=== PATIENT | male | born 1950 | race Caucasian/White ===

== ENCOUNTER → 2019-11-15 09:26 | Outpatient (CLI) | payer OTHER, SELFPAY ==
--- NOTE | 2019-11-15 09:29 | DI.RAD.S_ITS ---
PROCEDURE: XR LUMBAR SPINE MIN 4V INDICATIONS: LBP TECHNIQUE: 5 views of the lumbar spine were acquired. COMPARISON: [facility], MR, MR LUMBAR SPINE WITHOUT CONTRAST, 07/21/2019, 16:11. FINDINGS: Bones: 5 nonrib-bearing vertebrae are present. Minimal scoliosis. No vertebral body compression fractures. No suspicious bony lesions. Moderate degenerative change and DDD most pronounced at L5-S1 where there is endplate sclerosis, loss of intervertebral disc space height loss, and osteophytosis. There is multilevel neural foraminal narrowing. Soft tissues: Increased on the colon. No suspicious soft tissue calcifications. Oblique images: No pars defects. IMPRESSION: No compression fracture. Moderate degenerative change and DDD most pronounced at L5-S1 and multilevel neural foraminal narrowing. Dictated by: Roel Heredia M.D. on 11/15/2019 at 10:02 Approved by: Roel Heredia M.D. on 11/15/2019 at 10:05
== END ==
PROVIDERS: PCP Family Medicine; Referring Provider Physical Medicine & Rehabilitation; Visit Provider Physical Medicine & Rehabilitation
DX: M54.5 Low back pain (principal); M51.17 Intervertebral disc disorders with radiculopathy, lumbosacral region; M48.07 Spinal stenosis, lumbosacral region; I82.409 Acute embolism and thrombosis of unspecified deep veins of unspecified lower extremity; D68.51 Activated protein C resistance; M17.12 Unilateral primary osteoarthritis, left knee; Z79.01 Long term (current) use of anticoagulants
CPT/HCPCS: 72110; 99214

== ENCOUNTER → 2020-01-06 09:23 | Outpatient (CLI) | payer OTHER, SELFPAY ==
[2020-01-07 19:12] LABS: COVID19 Sendout Not Detected (Not Detect)
== END ==
PROVIDERS: PCP Family Medicine; Visit Provider Nurse Practitioner
DX: Z11.59 Encounter for screening for other viral diseases (principal)
CPT/HCPCS: 87635

== ENCOUNTER 2020-01-09 13:53 | Outpatient (CLI) | payer OTHER, SELFPAY ==
[2020-01-09] VITALS (8 sets, daily range): BP systolic 105–143; BP diastolic 65–78; PULSE 51–62; RESP 9–16; TEMP 36.2; O2SAT 96–100
--- NOTE | 2020-01-09 13:55 | DI.RAD.S_ITS ---
PROCEDURE: PAIN L/S TRANSFORAMINAL INJECT INDICATIONS: Left L5/S1 TFESI COMPARISON: None. FINDINGS: Fluoroscopic spot filming was performed to verify placement of spinal needles at the L5-S1 level(s), as labeled on the films. Appropriate location(s) of the needle tip(s) was confirmed by injection of iodinated contrast. Dictated by: Jesus Avalos M.D. on 01/09/2020 at 16:06 Approved by: Jesus Avalos M.D. on 01/09/2020 at 16:11
[2020-01-09] MEDS: MIDAZOLAM 5 MG/5 ML VIAL IV (14:58)
[2020-01-09] MEDS: fentaNYL 100 MCG/2 ML INJ 50 MCG IV (15:01)
[2020-01-09] MEDS: IOPAMIDOL 15 ML VIAL 3 ML INJ (15:06)
[2020-01-09] MEDS: BUPIVACAINE 0.25% (PF) VIAL 2 ML INJ (15:07)
[2020-01-09] MEDS: DEXAMETHASONE 10 MG/ML VIAL 20 MG INJ (15:07)
[2020-01-09] MEDS: BETAMETHASONE 30 MG/5 ML MDV 6 MG INJ (15:08)
--- NOTE | 2020-01-09 15:12 | P.PCN_ITS ---
Date/Time/Diagnoses Date of procedure: 01/09/20 Time of procedure: 15:12 Pre-procedure diagnosis: 1. FORAMINAL STENOSIS WITH LE SYMPTOMS Post-procedure diagnosis: same Procedure Notes Procedure: 1. FLUOROSCOPICALLY GUIDED CONTRAST CONTROLLED TRANSFORAMINAL EPIDURAL STEROID INJECTION - Left L5/S1 Indications: Bert is referred by Dr. Cooper for treatment of Foraminal Stenosis with Left LE Symptoms Physician: Emmanuel Oviedo Total Fluoroscopy time (seconds): 11 Total sedation minutes: 13 Complications: none Procedure in detail & Post-procedure care: FINDINGS Foraminal Nerve Root Compression secondary to disc disease and facet hypertrophy DESCRIPTION OF PROCEDURE Following review of allergy and review of potential side effects and complications, including, but not necessarily limited to, infection, allergic reaction, local tissue breakdown, stroke, temporary or permanent nerve injury, paralysis, and possible , the patient indicated that the patient understood and agreed to proceed. An informed consent document was signed by the patient, witnessed by a nurse, and placed in the patient's chart. Additionally, other treatment options including medications, modalities, and physical therapy were reviewed with the patient. After review of previous anaesthesic history and IV conscious sedation the patient was deemed safe to proceed with today?s procedure with IV conscious sedation as ASA class II designation. Safety time-out was performed to confirm patient ID, procedure to be performed and site of procedure. IV sedation was accomplished with a combination of 2mg of Versed and 50mcg of Fentanyl was administered by the RN after DO order, titrated to patient comfort during the course of the procedure while the patient remained responsive to all verbal commands In the prone position following sterile prep and drape of the lumbar region, the Left L5/S1 posterior neuroforamen was identified fluoroscopically. The skin was anesthetized via a 25-gauge 1.5-inch needle with 1% lidocaine solution. At this point, a 25-gauge 3.5-inch spinal needle was atraumatically introduced and advanced under fluoroscopic guidance through the posterior Left L5/S1 neurofor amen to approximately the anterior aspect of the canal. Depth was confirmed on lateral view. Following negative aspiration, injection of approximately 1.5 cc of Isovue 200 under live fluoroscopy in the AP view confirmed excellent flow along the nerve root, into the epidural space without vascular or intrathecal uptake observed Radiological data, including multiple fluoroscopic views of the lumbosacral spine, reveal a spinal needle at the Left L5/S1 posterior neuroforamen. Subsequent views show flow of contrast material flowing superiorly and inferiorly along the nerve root confirming epidural flow. Subsequently, a test dose of 1.5 cc of 1% lidocaine solution was administered and patient was observed for two minutes for signs or symptoms of complications, including abdominal pain, shortness of breath, bilateral upper or lower extremity weakness, nausea and vomiting, prior to steroid injection. At this point, a total of 3cc or 20mg of dexamethasone and 6mg of betamethasone was injected without incident. The procedure tolerated the procedure well without signs or symptoms of complications prior to transfer to the recovery area continued monitoring without incident. The patient was then transferred to the recovery area where they were observed for an appropriate time after the injection. The patient reported a VAS score of 7 prior to the procedure and a post-procedure VAS of 0. POST OP INSTRUCTIONS The patient was provided a Pain Log to continue to record their response to the target-specific procedure prior to follow-up visit with their referring physician. Additionally, specific post-injection care instructions and a contact number to our office were provided if concerns arise regarding possible complications associated with the procedure are suspected.
== END 2020-01-09 15:38 | disposition home or self-care (01) ==
LOC: RAD 13:54
PROVIDERS: PCP Family Medicine; Referring Provider Family Medicine; Visit Provider Physical Medicine & Rehabilitation
DX: M48.07 Spinal stenosis, lumbosacral region (principal); M51.17 Intervertebral disc disorders with radiculopathy, lumbosacral region
CPT/HCPCS: 64483; 99152; J0702; J1100; J2250; J3010

== ENCOUNTER → 2020-04-22 13:09 | Outpatient (CLI) | payer OTHER, SELFPAY ==
[2020-04-22 15:43] LABS: COVID19 -Nasal RAPID Negative (Negative)
== END ==
PROVIDERS: PCP Family Medicine; Visit Provider Physical Medicine & Rehabilitation
DX: Z01.812 Encounter for preprocedural laboratory examination (principal); Z20.828 Contact with and (suspected) exposure to other viral communicable diseases
CPT/HCPCS: 87635; C9803

== ENCOUNTER 2020-04-23 12:50 | Outpatient (CLI) | payer OTHER, SELFPAY ==
[2020-04-23] VITALS (9 sets, daily range): BP systolic 114–141; BP diastolic 54–70; PULSE 51–58; RESP 10–23; TEMP 36.4–36.6; O2SAT 96–100
--- NOTE | 2020-04-23 12:52 | DI.RAD.S_ITS ---
PROCEDURE: PAIN L/S TRANSFORAMINAL INJECT INDICATIONS: SPONDYLOSIS COMPARISON: [facility], , PAIN L/S TRANSFORAMINAL INJECT, 01/09/2020, 15:01. FINDINGS: Fluoroscopic spot filming was performed to verify placement of a spinal needle at the L4-L5 level, as labeled on the films. Appropriate location of the needle tip was confirmed by injection of iodinated contrast. IMPRESSION: Intraprocedural examination within normal limits. Dictated by: Aiden Ocasio M.D. on 04/23/2020 at 14:03 Approved by: Aiden Ocasio M.D. on 04/23/2020 at 14:04
[2020-04-23] MEDS: fentaNYL 100 MCG/2 ML INJ 50 MCG IV (14:01)
[2020-04-23] MEDS: MIDAZOLAM 5 MG/5 ML VIAL IV (14:01)
[2020-04-23] MEDS: DEXAMETHASONE 10 MG/ML VIAL 20 MG INJ (14:07)
[2020-04-23] MEDS: BUPIVACAINE 0.25% (PF) VIAL 2 ML INJ (14:07)
[2020-04-23] MEDS: IOPAMIDOL 15 ML VIAL 3 ML INJ (14:07)
[2020-04-23] MEDS: BETAMETHASONE 30 MG/5 ML MDV 6 MG INJ (14:08)
--- NOTE | 2020-04-23 14:11 | P.PCN_ITS ---
Date/Time/Diagnoses Date of procedure: 04/23/20 Time of procedure: 14:12 Pre-procedure diagnosis: 1. FORAMINAL STENOSIS WITH LE SYMPTOMS Post-procedure diagnosis: same Procedure Notes Procedure: 1. FLUOROSCOPICALLY GUIDED CONTRAST CONTROLLED TRANSFORAMINAL EPIDURAL STEROID INJECTION - LEFT L4/5 Indications: Bert is referred by Dr. Cooper for treatment of Foraminal Stenosis with Left LE Symptoms Physician: Emmanuel Oviedo Total Fluoroscopy time (seconds): 6 Total sedation minutes: 9 Complications: none Procedure in detail & Post-procedure care: FINDINGS Foraminal Nerve Root Compression secondary to disc disease and facet hypertrophy DESCRIPTION OF PROCEDURE Following review of allergy and review of potential side effects and complications, including, but not necessarily limited to, infection, allergic reaction, local tissue breakdown, stroke, temporary or permanent nerve injury, paralysis, and possible , the patient indicated that the patient understood and agreed to proceed. An informed consent document was signed by the patient, witnessed by a nurse, and placed in the patient's chart. Additionally, other treatment options including medications, modalities, and physical therapy were reviewed with the patient. After review of previous anaesthesic history and IV conscious sedation the patient was deemed safe to proceed with today?s procedure with IV conscious sedation as ASA class II designation. Safety time-out was performed to confirm patient ID, procedure to be performed and site of procedure. IV sedation was accomplished with a combination of 2mg of Versed and 50mcg of Fentanyl administered by the RN after DO order, titrated to patient comfort during the course of the procedure while the patient remained responsive to all verbal commands In the prone position following sterile prep and drape of the lumbar region, the left L4/5 posterior neuroforamen was identified fluoroscopically. The skin was anesthetized via a 25-gauge 1.5-inch needle with 1% lidocaine solution. At this point, a 25-gauge 3.5-inch spinal needle was atraumatically introduced and advanced under fluoroscopic guidance through the posterior left L4/5 neuroforamen to approximately the anterior aspect of the canal. Depth was confirmed on lateral view. Following negative aspiration, injection of approximately 1.5 cc of Isovue 200 under live fluoroscopy in the AP view confirmed excellent flow along the nerve root, into the epidural space without vascular or intrathecal uptake observed Radiological data, including multiple fluoroscopic views of the lumbosacral spine, reveal a spinal needle at the left L4/5 posterior neuroforamen. Subsequent views show flow of contrast material flowing superiorly and inferiorly along the nerve root confirming epidural flow. Subsequently, a test dose of 1.5 cc of 1% lidocaine solution was administered and patient was observed for two minutes for signs or symptoms of complications, including abdominal pain, shortness of breath, bilateral upper or lower extremity weakness, nausea and vomiting, prior to steroid injection. At this point, a total of 3cc or 20mg of dexamethasone and 6mg of betamethasone was injected without incident. The procedure tolerated the procedure well without signs or symptoms of complications prior to transfer to the recovery area continued monitoring without incident. The patient was then transferred to the recovery area where they were observed for an appropriate time after the injection. The patient reported a VAS score of 7 prior to the procedure and a post- procedure VAS of 0. POST OP INSTRUCTIONS The patient was provided a Pain Log to continue to record their response to the target-specific procedure prior to follow-up visit with their referring physician. Additionally, specific post-injection care instructions and a contact number to our office were provided if concerns arise regarding possible complications associated with the procedure are suspected.
== END 2020-04-23 14:31 | disposition home or self-care (01) ==
LOC: RAD 12:51
PROVIDERS: PCP Family Medicine; Referring Provider Physical Medicine & Rehabilitation; Visit Provider Physical Medicine & Rehabilitation
DX: M48.061 Spinal stenosis, lumbar region without neurogenic claudication (principal); M51.16 Intervertebral disc disorders with radiculopathy, lumbar region
CPT/HCPCS: 64483; J0702; J1100; J2250; J3010

== ENCOUNTER → 2022-09-30 10:58 | Outpatient (CLI) | payer OTHER, SELFPAY ==
--- NOTE | 2022-09-30 11:01 | DI.RAD.S_ITS ---
PROCEDURE: XR LUMBAR SPINE MIN 4V INDICATIONS: BACK PAIN TECHNIQUE: 5 views of the lumbar spine were acquired, including bilateral oblique views. COMPARISON: [facility], , XR LUMBAR SPINE MIN 4V, 11/15/2019, 9:20. FINDINGS: Bones: 5 nonrib-bearing vertebrae are present. There is normal bony alignment. No vertebral body compression fractures. No suspicious bony lesions. Degenerative changes including intervertebral disc space narrowing, endplate sclerosis and osteophytosis are present most notably at L4-5 and L5-S1. These degenerative changes have increased in extent when compared with the study dated November 15, 2019. Soft tissues: Overlying bowel gas pattern is normal. No suspicious soft tissue calcifications. Oblique images: No pars defects. IMPRESSION: No compression deformities. Increased degenerative changes when compared with the prior study. No spondylolysis or spondylolisthesis. Dictated by: Brandy Foster M.D. on 09/30/2022 at 11:27 Approved by: Brandy Foster M.D. on 09/30/2022 at 11:29
== END ==
PROVIDERS: PCP Nurse Practitioner Family; Referring Provider Physical Medicine & Rehabilitation; Visit Provider Physical Medicine & Rehabilitation
DX: M47.816 Spondylosis without myelopathy or radiculopathy, lumbar region (principal); M51.27 Other intervertebral disc displacement, lumbosacral region; M54.16 Radiculopathy, lumbar region; D68.51 Activated protein C resistance; Z68.22 Body mass index [BMI] 22.0-22.9, adult
CPT/HCPCS: 72110; 99214

== ENCOUNTER → 2022-10-15 16:14 | Outpatient (CLI) | payer OTHER, SELFPAY ==
--- NOTE | 2022-10-15 16:17 | DI.MRI.S_ITS ---
PROCEDURE: MR LUMBAR SPINE WO CON INDICATIONS: Low back pain left lower extremity radiculopathy TECHNIQUE: Noncontrast sagittal T1 spin echo and T2 fast echo, sagittal STIR, and T2 fast spin echo through the lumbar spine. In cases with scoliosis, additional coronal T2 fast spin echo may be performed. COMPARISON: None. FINDINGS: Image quality: Excellent. Alignment and Curvature: There is normal bony alignment. Bone Marrow: Marrow is of normal overall signal. No acute vertebral body compression fractures. Spinal Cord: Conus medullaris terminates at the L1 level. Visualized cord demonstrates normal signal and size. Paraspinous Soft Tissues: No paravertebral masses. T12-L1: Normal appearance. L1-L2: Normal appearance. L2-L3: Disc height is preserved. Asymmetric right disc bulge effaces the right lateral recess. No central stenosis. Moderate right and no left foraminal stenosis. L3-L4: Disc height is preserved. Circumferential disc bulge with mild central stenosis. No foraminal stenosis. L4-L5: Disc height is preserved. Circumferential disc bulge with mild central stenosis. Moderate bilateral foraminal stenosis. L5-S1: Disc space narrowing and circumferential disc bulge. No central stenosis. Severe left and moderate right foraminal stenosis associated with facet arthropathy. IMPRESSION: Multilevel degenerative disc disease and arthropathy results in varying degrees of central and foraminal stenosis including severe left L5-S1 foraminal stenosis Approved by: Otf Maravilla M.D. on 10/16/2022 at 10:35
== END ==
PROVIDERS: PCP Nurse Practitioner Family; Referring Provider Physical Medicine & Rehabilitation; Visit Provider Physical Medicine & Rehabilitation
DX: M51.27 Other intervertebral disc displacement, lumbosacral region (principal); M47.816 Spondylosis without myelopathy or radiculopathy, lumbar region; M51.36 Other intervertebral disc degeneration, lumbar region; M48.061 Spinal stenosis, lumbar region without neurogenic claudication
CPT/HCPCS: 72148

== ENCOUNTER 2022-12-17 14:01 | Outpatient (CLI) | payer OTHER, SELFPAY ==
--- NOTE | 2022-12-17 14:02 | DI.RAD.S_ITS ---
PROCEDURE: PAIN L/S TRANSFORAMINAL INJECT INDICATIONS: SPONDYLOSIS COMPARISON: [facility], , PAIN L/S TRANSFORAMINAL INJECT, 04/23/2020, 14:03. FINDINGS: Fluoroscopic spot filming was performed to verify placement of a spinal needle at the L4-L5 level, as labeled on the films. Appropriate location of the needle tip was confirmed by injection of iodinated contrast. IMPRESSION: Intraprocedural examination within normal limits. Dictated by: Aiden Ocasio M.D. on 12/17/2022 at 17:48 Approved by: Aiden Ocasio M.D. on 12/17/2022 at 17:48
[2022-12-17 14:14] VITALS: BP 141/74; PULSE 51; RESP 16; TEMP 36.7; O2SAT 99
[2022-12-17 14:49] VITALS: BP 152/77; PULSE 50; RESP 15; O2SAT 100
[2022-12-17] MEDS: MIDAZOLAM 2 MG/2 ML VIAL IV (14:49)
[2022-12-17] MEDS: BETAMETHASONE 30 MG/5 ML MDV 6 MG INJ (14:51)
[2022-12-17] MEDS: DEXAMETHASONE 10 MG/ML VIAL INJ (14:52)
[2022-12-17] MEDS: IOPAMIDOL 15 ML VIAL 3 ML INJ (14:52)
[2022-12-17] MEDS: BUPIVACAINE 0.25% (PF) VIAL 2 ML INJ (14:53)
[2022-12-17 14:54] VITALS: BP 117/68; PULSE 54; RESP 16; O2SAT 100
[2022-12-17 14:59] VITALS: BP 112/68; PULSE 54; RESP 12; O2SAT 100
--- NOTE | 2022-12-17 15:05 | P.PCN_ITS ---
Date/Time/Diagnoses Date of procedure: 12/17/22 Time of procedure: 15:05 Pre-procedure diagnosis: 1. FORAMINAL STENOSIS WITH LE SYMPTOMS Post-procedure diagnosis: same Procedure Notes Procedure: 1. FLUOROSCOPICALLY GUIDED CONTRAST CONTROLLED TRANSFORAMINAL EPIDURAL STEROID INJECTION - LEFT L4/5 Indications: Bert is referred by Dr. Wilson for treatment of Foraminal Stenosis with Left LE Symptoms Physician: Emmanuel Oviedo Total Fluoroscopy time (seconds): 11 Total sedation minutes: 11 Complications: none Procedure in detail & Post-procedure care: FINDINGS Foraminal Nerve Root Compression secondary to disc disease and facet hypertrophy DESCRIPTION OF PROCEDURE Following review of allergy and review of potential side effects and complications, including, but not necessarily limited to, infection, allergic reaction, local tissue breakdown, stroke, temporary or permanent nerve injury, paralysis, and possible , the patient indicated that the patient understood and agreed to proceed. An informed consent document was signed by the patient, witnessed by a nurse, and placed in the patient's chart. Additionally, other treatment options including medications, modalities, and physical therapy were reviewed with the patient. After review of previous anaesthesic history and IV conscious sedation the patient was deemed safe to proceed with today?s procedure with IV conscious sedation as ASA class II designation. Safety time-out was performed to confirm patient ID, procedure to be performed and site of procedure. IV sedation was accomplished with a combination of 2mg of Versed administered by the RN after DO order, titrated to patient comfort during the course of the procedure while the patient remained responsive to all verbal commands In the prone position following sterile prep and drape of the lumbar region, the left L4/5 posterior neuroforamen was identified fluoroscopically. The skin was anesthetized via a 25-gauge 1.5-inch needle with 1% lidocaine solution. At this point, a 25-gauge 3.5-inch spinal needle was atraumatically introduced and advanced under fluoroscopic guidance through the posterior left L4/5 neuroforamen to approximately the anterior aspect of the canal. Depth was confirmed on lateral view. Following negative aspiration, injection of approximately 1.5 cc of Isovue 200 under live fluoroscopy in the AP view confirmed excellent flow along the nerve root, into the epidural space without vascular or intrathecal uptake observed Radiological data, including multiple fluoroscopic views of the lumbosacral spine, reveal a spinal needle at the left L4/5 posterior neuroforamen. Subsequent views show flow of contrast material flowing superiorly and inferiorly along the nerve root confirming epidural flow. Subsequently, a test dose of 1.5 cc of 1% lidocaine solution was administered and patient was observed for two minutes for signs or symptoms of complications, including abdominal pain, shortness of breath, bilateral upper or lower extremity weakness, nausea and vomiting, prior to steroid injection. At this point, a total of 3cc or 10mg of dexamethasone and 12mg of betamethasone was injected without incident. The procedure tolerated the procedure well without signs or symptoms of complications prior to transfer to the recovery area continued monitoring without incident. The patient was then transferred to the recovery area where they were observed for an appropriate time after the injection. The patient reported a VAS score of 7 prior to the procedure and a post- procedure VAS of 1. POST OP INSTRUCTIONS The patient was provided a Pain Log to continue to record their response to the target-specific procedure prior to follow-up visit with their referring physician. Additionally, specific post-injection care instructions and a contact number to our office were provided if concerns arise regarding possible complications associated with the procedure are suspected.
[2022-12-17 15:11] VITALS: BP 124/68; PULSE 63; RESP 16; O2SAT 99
[2022-12-17 15:19] VITALS: BP 133/73; PULSE 60; RESP 16; O2SAT 60
== END 2022-12-17 15:23 | disposition home or self-care (01) ==
PROVIDERS: PCP Nurse Practitioner Family; Referring Provider Physical Medicine & Rehabilitation; Visit Provider Physical Medicine & Rehabilitation
DX: M48.061 Spinal stenosis, lumbar region without neurogenic claudication (principal); M51.16 Intervertebral disc disorders with radiculopathy, lumbar region; M47.26 Other spondylosis with radiculopathy, lumbar region
CPT/HCPCS: 64483; 99152; J0702; J1100; J2250